=== PATIENT | male | born 1985 | race Caucasian/White ===

== ENCOUNTER 2021-08-23 11:52 | Emergency (ER) | payer MEDICAID ==
[~2021-08-23] VITALS: Ht 185.4 cm; Wt 90.7 kg
[2021-08-23 12:09] VITALS: BP 140/81
[2021-08-23] MEDS ORDERED: KETOROLAC TROMETHAMINE INJ 60 MG/2 ML VIAL IM ONE (13:00)
== END 2021-08-23 13:04 | disposition home or self-care (01) ==
LOC: ER 11:58
DX: S89.82XA Other specified injuries of left lower leg, initial encounter (principal); S89.81XA Other specified injuries of right lower leg, initial encounter; X58.XXXA Exposure to other specified factors, initial encounter; Y93.89 Activity, other specified; Y92.89 Other specified places as the place of occurrence of the external cause; Y99.8 Other external cause status